=== PATIENT | male | born 1940 | race Caucasian/White ===

== ENCOUNTER → 2017-11-14 | Outpatient (CLI) | payer MEDICARE ==
[~2017-11-14] MED LIST: ASPI81CH; Omeprazole20 M1
[2017-11-14 11:57] LABS: Bacteria Rare /hpf; Red Blood Cells, Urine 25-50 /hpf (0-2); Squamous Epithelial Cells Rare /hpf (Few); White Blood Cells, Urine Not Seen /hpf (0-5)
== END | disposition home or self-care (01) ==
LOC: LAB EV 11:43
PROVIDERS: Physician Assistant Medical
DX: R31.9 Hematuria, unspecified (principal)
CPT/HCPCS: 81015; 87086

== ENCOUNTER 2018-03-07 11:03 | Day surgery (SDC) | payer MEDICARE, BC ==
[~2018-03-07] VITALS: Ht 175.3 cm; Wt 88.1 kg
== END 2018-03-07 13:25 | disposition home or self-care (01) ==
LOC: ORSCSDS 11:03
PROVIDERS: Internal Medicine Gastroenterology
PROC: 0DJD8ZZ Inspection of Lower Intestinal Tract, Via Natural or Artificial Opening Endoscopic (ICD-10-PCS; principal; 2018-03-07 13:00)
DX: Z12.11 Encounter for screening for malignant neoplasm of colon (principal); Z86.010 Personal history of colon polyps; K21.9 Gastro-esophageal reflux disease without esophagitis; E78.5 Hyperlipidemia, unspecified; Z87.891 Personal history of nicotine dependence; Z79.82 Long term (current) use of aspirin; Z79.899 Other long term (current) drug therapy
CPT/HCPCS: J7120

== ENCOUNTER 2018-03-09 08:49 | Day surgery (SDC) | payer MEDICARE, BC ==
[~2018-03-09] VITALS: Ht 175.3 cm; Wt 88.5 kg
== END 2018-03-09 12:38 | disposition home or self-care (01) ==
LOC: ORSCSDS 08:49
PROVIDERS: Internal Medicine Gastroenterology
PROC: 0DBK8ZX Excision of Ascending Colon, Via Natural or Artificial Opening Endoscopic, Diagnostic (ICD-10-PCS; principal; 2018-03-09 10:15)
PROC: 0DBL8ZX Excision of Transverse Colon, Via Natural or Artificial Opening Endoscopic, Diagnostic (ICD-10-PCS; principal; 2018-03-09 10:15)
DX: Z12.11 Encounter for screening for malignant neoplasm of colon (principal); D12.2 Benign neoplasm of ascending colon; D12.3 Benign neoplasm of transverse colon; K64.8 Other hemorrhoids; K57.30 Diverticulosis of large intestine without perforation or abscess without bleeding; Z86.010 Personal history of colon polyps; E78.2 Mixed hyperlipidemia; Z87.891 Personal history of nicotine dependence; Z79.82 Long term (current) use of aspirin; Z79.899 Other long term (current) drug therapy
CPT/HCPCS: 88305

== ENCOUNTER 2019-03-13 12:36 | Day surgery (SDC) | payer MEDICARE, BC ==
[~2019-03-13] VITALS: Ht 177.8 cm; Wt 94.1 kg
[2019-03-13] MEDS ORDERED: TAMS.4ER (13:11)
[2019-03-13] MEDS ORDERED: CHOL10002 (13:11)
[2019-03-13] MEDS ORDERED: CALCIUM GUMMIE1 EACH (13:12)
--- NOTE | 2019-03-13 15:42 | NUR ---
03/13/19 1542 Genesis Schmidt LATE ENTRY---PT C/O SCRATCHY THROAT THAT HE RATED 2/10 WHEN HE WAS FIRST WAKING UP. AFTER DRINKING JUICE AND JUST BEFORE DISCHARGE I ASKED AGAIN AND HE TOLD ME HIS THROAT WAS FINE AND FELT MUCH BETTER AND NO PAIN NOW. PATIENT WAS GIVEN PAMPHLETS ON HIGH FIBER AND DIVERTICULOSIS PER DR PETER REQUEST
== END 2019-03-13 15:10 | disposition home or self-care (01) ==
LOC: ORSCSDS 12:36
PROVIDERS: Internal Medicine Gastroenterology
PROC: 0DBP8ZX Excision of Rectum, Via Natural or Artificial Opening Endoscopic, Diagnostic (ICD-10-PCS; principal; 2019-03-13 14:15)
PROC: 0DB68ZX Excision of Stomach, Via Natural or Artificial Opening Endoscopic, Diagnostic (ICD-10-PCS; principal; 2019-03-13 14:15)
PROC: 0DBH8ZX Excision of Cecum, Via Natural or Artificial Opening Endoscopic, Diagnostic (ICD-10-PCS; principal; 2019-03-13 14:15)
PROC: 0DBM8ZX Excision of Descending Colon, Via Natural or Artificial Opening Endoscopic, Diagnostic (ICD-10-PCS; principal; 2019-03-13 14:15)
PROC: 0DBL8ZX Excision of Transverse Colon, Via Natural or Artificial Opening Endoscopic, Diagnostic (ICD-10-PCS; principal; 2019-03-13 14:15)
DX: Z86.010 Personal history of colon polyps (principal); D12.0 Benign neoplasm of cecum; D12.3 Benign neoplasm of transverse colon; D12.4 Benign neoplasm of descending colon; K62.1 Rectal polyp; K57.30 Diverticulosis of large intestine without perforation or abscess without bleeding; K64.8 Other hemorrhoids; R13.10 Dysphagia, unspecified; K21.9 Gastro-esophageal reflux disease without esophagitis; K31.7 Polyp of stomach and duodenum; K22.2 Esophageal obstruction; K31.4 Gastric diverticulum; E78.5 Hyperlipidemia, unspecified; Z79.82 Long term (current) use of aspirin; Z79.899 Other long term (current) drug therapy; Z87.891 Personal history of nicotine dependence
CPT/HCPCS: 88305; 88342; J2704; J7120

== ENCOUNTER → 2020-10-15 | Outpatient (CLI) | payer MEDICARE, BC ==
[~2020-10-15] MED LIST changes: +Aspirin EC81 MG PO; +CALCIUM CIT 311 EAC7 PO; +CALCIUM GUMMIE1 EACH; +CHOL10002; +Norco 5-325 Ta1 EACH PO; +OMEP20ER PO; +TAMS.4ER; +TAMS.4ER PO; +VITAMIN D325 MC3 PO
== END | disposition home or self-care (01) ==
LOC: LAB SHORT 10:18 → LAB EV 10:18
DX: J02.9 Acute pharyngitis, unspecified (principal)
CPT/HCPCS: 87081

== ENCOUNTER 2020-10-30 06:48 | Day surgery (SDC) | payer MEDICARE, BC ==
[~2020-10-30] VITALS: Ht 177.8 cm; Wt 91.8 kg
== END 2020-10-30 09:05 | disposition home or self-care (01) ==
LOC: ORSCSDS 06:48
PROVIDERS: Internal Medicine Gastroenterology
PROC: 0DBL8ZX Excision of Transverse Colon, Via Natural or Artificial Opening Endoscopic, Diagnostic (ICD-10-PCS; principal; 2020-10-30 08:00)
PROC: 0DBM8ZX Excision of Descending Colon, Via Natural or Artificial Opening Endoscopic, Diagnostic (ICD-10-PCS; principal; 2020-10-30 08:00)
DX: Z86.010 Personal history of colon polyps (principal); D12.3 Benign neoplasm of transverse colon; D12.4 Benign neoplasm of descending colon; K57.31 Diverticulosis of large intestine without perforation or abscess with bleeding; Z85.46 Personal history of malignant neoplasm of prostate; Z85.51 Personal history of malignant neoplasm of bladder; K21.9 Gastro-esophageal reflux disease without esophagitis; E78.5 Hyperlipidemia, unspecified; Z79.899 Other long term (current) drug therapy; Z79.82 Long term (current) use of aspirin
CPT/HCPCS: 88305; J2405; J2704; J7120

== ENCOUNTER → 2021-07-30 | Outpatient (CLI) | payer MEDICARE, BC ==
[2021-07-30 11:30] LABS: BASOPHILS ABSOLUTE AUTO 0.02 K/mm3 (0.00-0.23); BASOPHILS PERCENT AUTO 0 % (0-2); EOSINOPHILS ABSOLUTE AUTO 0.01 K/mm3 (0.00-0.68); EOSINOPHILS PERCENT AUTO 0 % (0-6); Hematocrit 36.4 % (37.0-53.0); Hemoglobin 12.4 g/dL (13.5-17.5); IMMATURE GRAN ABSOLUTE AUTO 0.01 K/mm3 (0.00-0.10); IMMATURE GRAN PERCENT AUTO 0 % (0-1); LYMPHOCYTES ABSOLUTE AUTO 0.95 K/mm3 (0.84-5.20); LYMPHOCYTES PERCENT AUTO 15 % (21-46); MONOCYTES ABSOLUTE AUTO 0.46 K/mm3 (0.16-1.47); MONOCYTES PERCENT AUTO 7 % (4-13); Mean Corpuscular HGB 31.4 pg (26.0-34.0); Mean Corpuscular HGB Conc 34.1 g/dL (31.5-36.5); Mean Corpuscular Volume 92 fL (80-100); Mean Platelet Volume 9.9 fL (9.1-12.4); NEUTROPHILS ABSOLUTE AUTO 4.84 K/mm3 (1.96-9.15); NEUTROPHILS PERCENT AUTO 77 % (41-73); Platelet Count 258 K/mm3 (150-400); RDW Coefficient Variation 12.5 % (11.7-14.2); RDW Standard Deviation 42.5 fL (35.1-46.3); Red Blood Cell Count 3.95 M/mm3 (4.30-5.90); White Blood Cell Count 6.29 K/mm3 (4.00-11.30)
[2021-07-30 11:39] LABS: Anion Gap 8 mmol/L (6-16); Blood Urea Nitrogen 28 mg/dL (8-24); Bun/Creatinine Ratio 35.4 (12.0-20.0); CO2, Blood 27 mmol/L (21-32); Calcium, Blood 9.1 mg/dL (8.5-10.1); Chloride, Blood 103 mmol/L (98-108); Creatinine, Blood 0.79 mg/dL (0.60-1.20); Glomerular Filtration Rate >60 (60-); Glucose, Blood 113 mg/dL (70-99); Potassium, Blood 4.3 mmol/L (3.5-5.5); Sodium, Blood 138 mmol/L (136-145)
== END | disposition home or self-care (01) ==
LOC: LAB 11:24 → LAB SHORT 11:24
PROVIDERS: Family Medicine
DX: R55 Syncope and collapse (principal)
CPT/HCPCS: 80048; 85025

== ENCOUNTER 2021-10-28 08:13 | Day surgery (SDC) | payer MEDICARE, BC ==
[~2021-10-28] VITALS: Ht 175.3 cm; Wt 89.9 kg
== END 2021-10-28 10:31 | disposition home or self-care (01) ==
LOC: ORSCSDS 08:13
PROVIDERS: Internal Medicine Gastroenterology
PROC: 0DJD8ZZ Inspection of Lower Intestinal Tract, Via Natural or Artificial Opening Endoscopic (ICD-10-PCS; principal; 2021-10-28 09:30)
DX: Z12.11 Encounter for screening for malignant neoplasm of colon (principal); Z86.010 Personal history of colon polyps; K57.30 Diverticulosis of large intestine without perforation or abscess without bleeding; K21.9 Gastro-esophageal reflux disease without esophagitis; Z79.899 Other long term (current) drug therapy
CPT/HCPCS: J2704; J7120

== ENCOUNTER → 2022-08-03 | Outpatient (CLI) | payer MEDICARE, BC | LOC: LAB SHORT 12:53 → LAB 12:53 | DX: J02.9 Acute pharyngitis, unspecified (principal) | CPT/HCPCS: 87081 ==

== ENCOUNTER 2022-09-22 18:25 | Inpatient (IN) | payer MEDICARE, BC ==
[~2022-09-22] VITALS: Ht 175.3 cm; Wt 88.2 kg
[2022-09-22 19:35] LABS: BASOPHILS ABSOLUTE AUTO 0.02 K/mm3 (0.00-0.23); BASOPHILS PERCENT AUTO 0 % (0-2); EOSINOPHILS PERCENT AUTO 0 % (0-6); Hematocrit 37.4 % (37.0-53.0); Hemoglobin 12.6 g/dL (13.5-17.5); IMMATURE GRAN ABSOLUTE AUTO 0.01 K/mm3 (0.00-0.10); IMMATURE GRAN PERCENT AUTO 0 % (0-1); LYMPHOCYTES ABSOLUTE AUTO 0.49 K/mm3 (0.84-5.20); LYMPHOCYTES PERCENT AUTO 11 % (21-46); MONOCYTES ABSOLUTE AUTO 0.75 K/mm3 (0.16-1.47); MONOCYTES PERCENT AUTO 16 % (4-13); Mean Corpuscular HGB 32.1 pg (26.0-34.0); Mean Corpuscular HGB Conc 33.7 g/dL (31.5-36.5); Mean Corpuscular Volume 95 fL (80-100); Mean Platelet Volume 9.4 fL (9.1-12.4); NEUTROPHILS PERCENT AUTO 73 % (41-73); Platelet Count 251 K/mm3 (150-400); RDW Coefficient Variation 12.4 % (11.7-14.2); RDW Standard Deviation 43.5 fL (35.1-46.3); Red Blood Cell Count 3.93 M/mm3 (4.30-5.90); White Blood Cell Count 4.67 K/mm3 (4.00-11.30)
[2022-09-22 19:36] LABS: Source, Urine Voided
[2022-09-22 19:40] LABS: Appearance, Urine Clear (Clear); Bilirubin, Urine Neg (Neg); Blood, Urine 2+ (Neg); Color, Urine Yellow (P-Yellow); Glucose Qualitative, Urine Neg (Neg); Ketones, Urine 1+ (Neg); Leukocyte Esterase, Urine 1+ (Neg); Nitrite, Urine Neg (Neg); Protein, Urine 2+ (Neg); Specific Gravity, Urine 1.025 (1.003-1.022); Urobilinogen, Urine 1+ (Normal)
[2022-09-22 19:45] LABS: Albumin, Blood 3.5 g/dL (3.4-5.0); Albumin/Globulin Ratio 0.9 (0.8-1.8); Bilirubin, Total 0.4 mg/dL (0.1-1.0); Bun/Creatinine Ratio 20.6 (12.0-20.0); Calcium, Blood 8.8 mg/dL (8.5-10.1); Creatinine, Blood 1.26 mg/dL (0.60-1.20); Globulin, Blood 3.8 g/dL (2.2-4.0); Total Protein, Blood 7.3 g/dL (6.4-8.2)
[2022-09-22 19:48] LABS: Mucus Mod (0-Heavy)
[2022-09-22 19:49] LABS: Bacteria Mod /hpf; Squamous Epithelial Cells Rare /hpf (Few)
[2022-09-22 20:53] LABS: Influenza A, PCR NEGATIVE (NEGATIVE); Influenza B, PCR NEGATIVE (NEGATIVE); Resp Syncytial Virus, PCR NEGATIVE (NEGATIVE)
[2022-09-22 21:47] LABS: SARS-Cov-2 (COVID-19) PCR, MMC POSITIVE (NEGATIVE)
[2022-09-22] MEDS ORDERED: RIVASTIGMINE6 MG PO (22:24)
[2022-09-22] MEDS ORDERED: CARBIDOPA-LEVO1 EA15 PO (22:24)
--- NOTE | 2022-09-23 04:18 | NUR ---
Patient resting in bed, no significant events overnight.
[2022-09-23 05:10] LABS: BASOPHILS ABSOLUTE AUTO 0.01 K/mm3 (0.00-0.23); BASOPHILS PERCENT AUTO 0 % (0-2); EOSINOPHILS PERCENT AUTO 0 % (0-6); Hematocrit 32.9 % (37.0-53.0); Hemoglobin 11.2 g/dL (13.5-17.5); IMMATURE GRAN PERCENT AUTO 0 % (0-1); LYMPHOCYTES ABSOLUTE AUTO 0.99 K/mm3 (0.84-5.20); LYMPHOCYTES PERCENT AUTO 28 % (21-46); MONOCYTES ABSOLUTE AUTO 0.85 K/mm3 (0.16-1.47); MONOCYTES PERCENT AUTO 24 % (4-13); Mean Corpuscular HGB 32.3 pg (26.0-34.0); Mean Corpuscular Volume 95 fL (80-100); Mean Platelet Volume 9.6 fL (9.1-12.4); NEUTROPHILS ABSOLUTE AUTO 1.65 K/mm3 (1.96-9.15); NEUTROPHILS PERCENT AUTO 47 % (41-73); Platelet Count 207 K/mm3 (150-400); RDW Coefficient Variation 12.3 % (11.7-14.2); RDW Standard Deviation 42.7 fL (35.1-46.3); Red Blood Cell Count 3.47 M/mm3 (4.30-5.90)
[2022-09-23 05:51] LABS: Albumin, Blood 2.9 g/dL (3.4-5.0); Albumin/Globulin Ratio 0.9 (0.8-1.8); Bilirubin, Total 0.4 mg/dL (0.1-1.0); Bun/Creatinine Ratio 21.3 (12.0-20.0); Calcium, Blood 8.3 mg/dL (8.5-10.1); Creatinine, Blood 0.94 mg/dL (0.60-1.20); Globulin, Blood 3.2 g/dL (2.2-4.0); Potassium, Blood 3.5 mmol/L (3.5-5.5); Total Protein, Blood 6.1 g/dL (6.4-8.2)
[2022-09-23] MEDS ORDERED: GABA100 PO (13:17)
--- NOTE | 2022-09-23 17:13 | NUR ---
SHIFT SUMMARY: PATIENT ALERT AND ORIENTED TO SELF, PLACE AND CURRENT SITUATIONS. PATIENT COULD NOT RECALL THE SPICIFIC DAY, DATE BUT HE HE REMEMBER THE MONTH AND YEAR. PATIENT HAS HX OF DEMENTIA. PATIENT DENIES CP/PRESSURE, ON TELE SR IN HIGH 80'S BPM, PER CERTIFIED MEDICAL TRANSCRIPTIONIST, ALFREDO RDZ. PATIENT HAS NONPRODUCTIVE COUGH. ON RA, c SPO2 OF 94% T/O SHIFT. DENIES SOB, RR UNLABORED. LUNGS CLEAR/DIM TO AUSCULTATION T/O. PATIENT CONTIN AND USED URINAL IN BED c ASSISTANCE. PATIENT REPORTS PAIN TO LOWER BACK 03/31. MEDICATED X1 c TYLENOL AND PROVIDE REPOSITIONING. PATIENT REPORTS NOT GETTING ADEQUATE RELIEF FROM TYLENOL, BUT IT HELPS c REPOSITIONING. ECHO WAS DONE THIS AM, AWAITING FOR RESULT. PATIENT WAS ABLE TO PARTICIPATE c PT MOBILITY IN BED AND ABLE TO SIT-UP ON THE EOB FOR SHORT PERIOD AND REQUESTED TO BE BACK IN BED. SPOUSE AT BEDSIDE. UPDATE GIVEN TO SPOUSE REGARDING PATIENT CONDITION. PER PATIENT DOES NOT TAKE CARVIDOPA/LAVIDOPA AND IN ADDITION, PER PATIENT TAKES EXELON [address] ANDERSON REGARDING CONCERN. RECEIVED ORDER FROM DR. ANDERSON TO D/C CARVIDOPA/LAVIDOPA AND CONTINUE EXELON 6 MG BID. IV TO L FOREARM SALINE LOCKED. VITAL SIGNS REVIEWED. BED ALARM ON FOR SAFETY. CALL LIGHT IN REACH.
--- NOTE | 2022-09-23 22:17 | NUR ---
Critical lab reported to hospitalist.
--- NOTE | 2022-09-24 03:05 | NUR ---
Patient resting in bed, no significant events overnight.
[2022-09-24 05:06] LABS: BASOPHILS ABSOLUTE AUTO 0.01 K/mm3 (0.00-0.23); BASOPHILS PERCENT AUTO 0 % (0-2); EOSINOPHILS ABSOLUTE AUTO 0.01 K/mm3 (0.00-0.68); EOSINOPHILS PERCENT AUTO 0 % (0-6); Hematocrit 35.1 % (37.0-53.0); Hemoglobin 12.2 g/dL (13.5-17.5); IMMATURE GRAN ABSOLUTE AUTO 0.01 K/mm3 (0.00-0.10); IMMATURE GRAN PERCENT AUTO 0 % (0-1); LYMPHOCYTES ABSOLUTE AUTO 1.07 K/mm3 (0.84-5.20); LYMPHOCYTES PERCENT AUTO 23 % (21-46); MONOCYTES ABSOLUTE AUTO 0.86 K/mm3 (0.16-1.47); MONOCYTES PERCENT AUTO 18 % (4-13); Mean Corpuscular HGB 32.4 pg (26.0-34.0); Mean Corpuscular HGB Conc 34.8 g/dL (31.5-36.5); Mean Corpuscular Volume 93 fL (80-100); Mean Platelet Volume 9.2 fL (9.1-12.4); NEUTROPHILS PERCENT AUTO 59 % (41-73); Platelet Count 200 K/mm3 (150-400); RDW Coefficient Variation 12.3 % (11.7-14.2); RDW Standard Deviation 42.5 fL (35.1-46.3); Red Blood Cell Count 3.76 M/mm3 (4.30-5.90); White Blood Cell Count 4.76 K/mm3 (4.00-11.30)
[2022-09-24 05:35] LABS: Bun/Creatinine Ratio 22.4 (12.0-20.0); Calcium, Blood 8.5 mg/dL (8.5-10.1); Creatinine, Blood 0.85 mg/dL (0.60-1.20); Potassium, Blood 3.6 mmol/L (3.5-5.5)
--- NOTE | 2022-09-24 09:39 | NUR ---
PATIENT ALERT AND OREINTED, CONFUSION AT TIMES, WEAKNESS, DR ADAMS ROUNDED, PATIENT TO START PT/OT TODAY, CALL LIGHT WITH IN REACH
--- NOTE | 2022-09-24 18:14 | NUR ---
ALERT AND ORIENTED, MINMAL CONFUSION, EASILY RE-EDUCATED, NO ACUTE CHANGES, WORKED WITH PT.OT TODAY TO INCREASE STRENGTH FOR POSSIBLE DISCHARGE HOME. STAND BY ASSIST FOR TRANSFER AND BRP, BED ALARM ON FOR FORGETTING TO USE CALL LIGHT, PATIENT USES CALL LIGHT APPRIOPRIATELY, CALL LIGHT WITH IN REACH, MAKES NEEDS KNOWN, WILL RELAY TO PM
[2022-09-25 05:02] LABS: BASOPHILS ABSOLUTE AUTO 0.01 K/mm3 (0.00-0.23); BASOPHILS PERCENT AUTO 0 % (0-2); EOSINOPHILS ABSOLUTE AUTO 0.02 K/mm3 (0.00-0.68); EOSINOPHILS PERCENT AUTO 1 % (0-6); Hematocrit 36.2 % (37.0-53.0); IMMATURE GRAN ABSOLUTE AUTO 0.01 K/mm3 (0.00-0.10); IMMATURE GRAN PERCENT AUTO 0 % (0-1); LYMPHOCYTES PERCENT AUTO 32 % (21-46); MONOCYTES ABSOLUTE AUTO 0.62 K/mm3 (0.16-1.47); MONOCYTES PERCENT AUTO 15 % (4-13); Mean Corpuscular HGB 31.5 pg (26.0-34.0); Mean Corpuscular HGB Conc 33.1 g/dL (31.5-36.5); Mean Corpuscular Volume 95 fL (80-100); Mean Platelet Volume 9.6 fL (9.1-12.4); NEUTROPHILS ABSOLUTE AUTO 2.16 K/mm3 (1.96-9.15); NEUTROPHILS PERCENT AUTO 53 % (41-73); Platelet Count 212 K/mm3 (150-400); RDW Coefficient Variation 12.5 % (11.7-14.2); RDW Standard Deviation 43.8 fL (35.1-46.3); Red Blood Cell Count 3.81 M/mm3 (4.30-5.90); White Blood Cell Count 4.12 K/mm3 (4.00-11.30)
[2022-09-25 05:47] LABS: Albumin/Globulin Ratio 0.9 (0.8-1.8); Bilirubin, Total 0.4 mg/dL (0.1-1.0); Bun/Creatinine Ratio 29.8 (12.0-20.0); Calcium, Blood 8.6 mg/dL (8.5-10.1); Creatinine, Blood 0.81 mg/dL (0.60-1.20); Globulin, Blood 3.5 g/dL (2.2-4.0); Potassium, Blood 3.8 mmol/L (3.5-5.5); Total Protein, Blood 6.5 g/dL (6.4-8.2)
--- NOTE | 2022-09-25 06:41 | NUR ---
VS STABLE ON RA, A&O, PLEASANT AND COOPERATIVE WITH CARES. GENERALIZED WEAKNESS, DID NOT ATTEMPT TO GET OUT OF BED LAST NIGHT. FREQUENCY WITH VOIDS BETWEEN 75-150 MLS, URINAL ASSISTANCE REQUIRED. TOLERATED IV ANTIBIOTICS, L FA IV PATENT AND SALINE LOCKED. NO EVENTS OVER NIGHT.
--- NOTE | 2022-09-25 15:30 | NUR ---
SHIFT SUMMARY PT RESTING QUIETLY AT START OF SHIFT. NO C/O. UP WITH SBA USING FWW, TO SIT IN CHAIR FOR BREAKFAST. PT CALLED FOR ASSIST TO GO BACK TO BED WHEN READY. ATTEMPTED TO OBTAIN SPUTUM CX, BUT NOT COUGHING. PT IN ISOLATION FOR COVID +, WITH AT HOME ALSO COVID +. DR ADAMS IN TO SEE PT THIS AFTERNOON. PT TO D/C TO HOME TOMORROW. SR PER TELE MX. DENIED FURTHER NEEDS AT THIS TIME. CALL LT IN REACH.
[2022-09-26 04:54] LABS: BASOPHILS ABSOLUTE AUTO 0.01 K/mm3 (0.00-0.23); BASOPHILS PERCENT AUTO 0 % (0-2); EOSINOPHILS ABSOLUTE AUTO 0.05 K/mm3 (0.00-0.68); EOSINOPHILS PERCENT AUTO 1 % (0-6); Hematocrit 37.4 % (37.0-53.0); Hemoglobin 12.6 g/dL (13.5-17.5); IMMATURE GRAN ABSOLUTE AUTO 0.01 K/mm3 (0.00-0.10); IMMATURE GRAN PERCENT AUTO 0 % (0-1); LYMPHOCYTES ABSOLUTE AUTO 1.36 K/mm3 (0.84-5.20); LYMPHOCYTES PERCENT AUTO 28 % (21-46); MONOCYTES ABSOLUTE AUTO 0.55 K/mm3 (0.16-1.47); MONOCYTES PERCENT AUTO 11 % (4-13); Mean Corpuscular HGB Conc 33.7 g/dL (31.5-36.5); Mean Corpuscular Volume 95 fL (80-100); Mean Platelet Volume 9.3 fL (9.1-12.4); NEUTROPHILS ABSOLUTE AUTO 2.83 K/mm3 (1.96-9.15); NEUTROPHILS PERCENT AUTO 59 % (41-73); Platelet Count 218 K/mm3 (150-400); RDW Coefficient Variation 12.2 % (11.7-14.2); RDW Standard Deviation 42.8 fL (35.1-46.3); Red Blood Cell Count 3.94 M/mm3 (4.30-5.90); White Blood Cell Count 4.81 K/mm3 (4.00-11.30)
[2022-09-26 05:14] LABS: Bun/Creatinine Ratio 26.5 (12.0-20.0); Creatinine, Blood 0.79 mg/dL (0.60-1.20)
--- NOTE | 2022-09-26 05:50 | NUR ---
Patient slept well overnight, no desats noted. On RA. Tolerating fluids by mouth. Voiding well, no questions or concerns at this time.
--- NOTE | 2022-09-26 15:37 | NUR ---
SHIFT SUMMARY PT AWAKE AT START OF SHIFT WATCHING TV. NO C/O. PT LATER ASSISTED UP TO CHAIR FOR BREAKFAST; 1P ASSIST. PT CALLS FOR ASSIST WITH URINAL AND OTHER NEEDS. DR ADAMS IN TO SEE PT AND DISCUSS PLAN OF CARE. PT TO D/C TO HOME. NOTIFIED AND CAME TO PICK PT UP WITH PT'S SON. D/C INSTRUCTIONS REVIEWED WITH PER PT AND REQUEST. NO NEW MEDICATIONS ORDERED. AND PT VERBALIZED UNDERSTANDING. PT ASSISTED OUT TO CAR VIA W/C WITH BELONGINGS IN HAND.
== END 2022-09-26 14:31 | disposition home or self-care (01) | DRG 871 ==
LOC: ER 18:25 → MEDS 21:53
PROVIDERS: Emergency Medicine; Family Medicine; ADMIT Internal Medicine
PROC: 8E0ZXY6 Isolation (ICD-10-PCS; principal; 2022-09-22)
PROC: XW033E5 Introduction of Remdesivir Anti-infective into Peripheral Vein, Percutaneous Approach, New Technology Group 5 (ICD-10-PCS; 2022-09-22)
PROC: 3E03329 Introduction of Other Anti-infective into Peripheral Vein, Percutaneous Approach (ICD-10-PCS; 2022-09-22)
DX: A41.9 Sepsis, unspecified organism (principal); J12.82 Pneumonia due to coronavirus disease 2019; U07.1 COVID-19; N39.0 Urinary tract infection, site not specified; E87.20 Acidosis, unspecified; G93.49 Other encephalopathy; F02.818 Dementia in other diseases classified elsewhere, unspecified severity, with other behavioral disturbance; N47.1 Phimosis; F41.9 Anxiety disorder, unspecified; G31.83 Neurocognitive disorder with Lewy bodies; D64.9 Anemia, unspecified; E86.0 Dehydration; Z85.46 Personal history of malignant neoplasm of prostate; Z85.51 Personal history of malignant neoplasm of bladder; Z90.49 Acquired absence of other specified parts of digestive tract; Z90.79 Acquired absence of other genital organ(s); Z98.890 Other specified postprocedural states; Z87.891 Personal history of nicotine dependence
CPT/HCPCS: 0241U; 36415; 70450; 71046; 80048; 80053; 81001; 83605; 83880; 84145; 85025; 87040; 87086; 93306; 93880; 96365; 96367; 97110; 97116; 97162; 97166; 97530; 97535; 99285-25; A9270; J0248; J0456; J0696; J1650; J7030; J7050

== ENCOUNTER 2024-05-08 08:07 | Day surgery (SDC) | payer MEDICARE, BC ==
[~2024-05-08] VITALS: Ht 175.3 cm; Wt 88.3 kg
[~2024-05-08 08:07] MED LIST changes: +Balanced Salt Epinephrine Irrigation Solution 500 mL IR SCH; +CARBIDOPA-LEVO1 EA15 PO; +GABA100 PO; +Lidocaine HCl/Pf 1% 5 ML VIAL XX SCH; +Moxifloxacin HCL 0.5 MG/0.1 ML 0.4MLSYR LEFTEYE SCH; +NS 500 ML IV ONE; +PHENYLEPHRINE\\TROPICAMIDE\\TETRACAINE OPHTHALMIC DILATING SOLN LEFTEYE PRN; +Povidone-Iodine 450 DROP/30 ML Solution LEFTEYE SCH; +Povidone-Iodine 450 DROP/30 ML Solution ONE; +RIVASTIGMINE6 MG PO; +Tetracaine HCl/Pf 0.5% Opth Soln 4 ml ONE
[2024-05-08] MEDS ORDERED: CARBIDOPA-LEVO1 EA15 (08:49)
[2024-05-08] MEDS ORDERED: NS 500 ML IV ONE (08:56)
--- NOTE | 2024-05-08 08:57 | NUR ---
05/08/24 0857 Kiko España CALL LIGHT WITHIN REACH. TETRACAINE IN LEFT EYE 0850 AND PLEDGETT IN AT 0851
[2024-05-08] MEDS ORDERED: Midazolam HCl 1MG / ML 2ML Vial ONE (09:40)
[2024-05-08 10:18] VITALS: BP 139/69
== END 2024-05-08 10:26 | disposition home or self-care (01) ==
LOC: ORSCSDS 08:07
PROVIDERS: Student in an Organized Health Care Education/Training Program
PROC: 08RK3JZ Replacement of Left Lens with Synthetic Substitute, Percutaneous Approach (ICD-10-PCS; principal; 2024-05-08 09:30)
DX: H25.813 Combined forms of age-related cataract, bilateral (principal); H21.81 Floppy iris syndrome; I25.10 Atherosclerotic heart disease of native coronary artery without angina pectoris; K21.9 Gastro-esophageal reflux disease without esophagitis; G20.A1 Parkinson's disease without dyskinesia, without mention of fluctuations; G30.9 Alzheimer's disease, unspecified; F02.80 Dementia in other diseases classified elsewhere, unspecified severity, without behavioral disturbance, psychotic disturbance, mood disturbance, and anxiety; Z79.82 Long term (current) use of aspirin; Z79.899 Other long term (current) drug therapy
CPT/HCPCS: J2250; J7040; V2632

== ENCOUNTER 2024-05-16 09:43 | Day surgery (SDC) | payer MEDICARE, BC ==
[~2024-05-16] VITALS: Ht 175.3 cm; Wt 88.3 kg
[~2024-05-16 09:43] MED LIST changes: +CARBIDOPA-LEVO1 EA15; +FentaNYL Citrate 50 MCG/ML 2 ML Injection ONE; +Midazolam HCl 1MG / ML 2ML Vial ONE; -Moxifloxacin HCL 0.5 MG/0.1 ML 0.4MLSYR LEFTEYE SCH; +Moxifloxacin HCL 0.5 MG/0.1 ML 0.4MLSYR RIGHTEYE SCH; -PHENYLEPHRINE\\TROPICAMIDE\\TETRACAINE OPHTHALMIC DILATING SOLN LEFTEYE PRN; +PHENYLEPHRINE\\TROPICAMIDE\\TETRACAINE OPHTHALMIC DILATING SOLN RIGHTEYE PRN; -Povidone-Iodine 450 DROP/30 ML Solution LEFTEYE SCH; +Povidone-Iodine 450 DROP/30 ML Solution RIGHTEYE SCH
[2024-05-16] MEDS ORDERED: NS 1,000 ML IV ONE (10:22)
[2024-05-16 11:33] VITALS: BP 128/79
== END 2024-05-16 11:46 | disposition home or self-care (01) ==
LOC: ORSCSDS 09:43
PROVIDERS: Student in an Organized Health Care Education/Training Program
PROC: 08RJ3JZ Replacement of Right Lens with Synthetic Substitute, Percutaneous Approach (ICD-10-PCS; principal; 2024-05-16 11:00)
DX: H25.811 Combined forms of age-related cataract, right eye (principal); Z96.1 Presence of intraocular lens; G30.9 Alzheimer's disease, unspecified; I25.10 Atherosclerotic heart disease of native coronary artery without angina pectoris; Z79.899 Other long term (current) drug therapy
CPT/HCPCS: J2250; J3010; J7040; V2632

== ENCOUNTER 2024-06-04 18:10 | Inpatient (IN) | payer MEDICARE, BC ==
[~2024-06-04] VITALS: Ht 177.8 cm; Wt 79.4 kg
[~2024-06-04 18:10] MED LIST changes: -Balanced Salt Epinephrine Irrigation Solution 500 mL IR SCH; -FentaNYL Citrate 50 MCG/ML 2 ML Injection ONE; -Lidocaine HCl/Pf 1% 5 ML VIAL XX SCH; -Midazolam HCl 1MG / ML 2ML Vial ONE; -Moxifloxacin HCL 0.5 MG/0.1 ML 0.4MLSYR RIGHTEYE SCH; -NS 500 ML IV ONE; -PHENYLEPHRINE\\TROPICAMIDE\\TETRACAINE OPHTHALMIC DILATING SOLN RIGHTEYE PRN; -Povidone-Iodine 450 DROP/30 ML Solution ONE; -Povidone-Iodine 450 DROP/30 ML Solution RIGHTEYE SCH; -Tetracaine HCl/Pf 0.5% Opth Soln 4 ml ONE
[2024-06-04 18:39] LABS: BASOPHILS ABSOLUTE AUTO 0.01 K/mm3 (0.00-0.23); BASOPHILS PERCENT AUTO 0 % (0-2); EOSINOPHILS PERCENT AUTO 0 % (0-6); Hemoglobin 11.1 g/dL (13.5-17.5); IMMATURE GRAN ABSOLUTE AUTO 0.03 K/mm3 (0.00-0.10); IMMATURE GRAN PERCENT AUTO 0 % (0-1); LYMPHOCYTES ABSOLUTE AUTO 0.51 K/mm3 (0.84-5.20); LYMPHOCYTES PERCENT AUTO 5 % (21-46); MONOCYTES ABSOLUTE AUTO 0.62 K/mm3 (0.16-1.47); MONOCYTES PERCENT AUTO 7 % (4-13); Mean Corpuscular HGB Conc 32.6 g/dL (31.5-36.5); Mean Corpuscular Volume 98 fL (80-100); Mean Platelet Volume 10.2 fL (9.1-12.4); NEUTROPHILS ABSOLUTE AUTO 8.26 K/mm3 (1.96-9.15); NEUTROPHILS PERCENT AUTO 88 % (41-73); Platelet Count 260 K/mm3 (150-400); RDW Coefficient Variation 13.1 % (11.7-14.2); RDW Standard Deviation 46.1 fL (35.1-46.3); Red Blood Cell Count 3.47 M/mm3 (4.30-5.90); White Blood Cell Count 9.43 K/mm3 (4.00-11.30)
[2024-06-04] MEDS ORDERED: Heparin Sodium 5000 Units/ML 1ML MDV IV ONE (18:40)
[2024-06-04 18:58] LABS: Alanine Aminotransfer (ALT/SGP 74 U/L (12-78); Albumin, Blood 3.3 g/dL (3.4-5.0); Albumin/Globulin Ratio 0.9 (0.8-1.8); Alk Phos 138 U/L (50-136); Anion Gap 14 mmol/L (3-11); Aspartate Aminotrans (AST/SGOT 606 U/L (12-37); Bilirubin, Total 1.2 mg/dL (0.1-1.0); Blood Urea Nitrogen 27 mg/dL (8-24); Bun/Creatinine Ratio 18.4 (12.0-20.0); CHOL/HDL RATIO 4.7; CO2, Blood 22 mmol/L (21-32); Calcium, Blood 8.5 mg/dL (8.5-10.1); Chloride, Blood 103 mmol/L (98-108); Cholesterol 208 mg/dL (50-200); Creatinine, Blood 1.47 mg/dL (0.60-1.20); Globulin, Blood 3.8 g/dL (2.2-4.0); Glomerular Filtration Rate 47 (60-); Glucose, Blood 210 mg/dL (70-99); HDL Cholesterol 44 mg/dL (>39); LDL/HDL RATIO 3.2; Low Density Lipoprotein Chol 143 mg/dL (0-110); Magnesium, Blood 2.3 mg/dL (1.6-2.4); Potassium, Blood 4.3 mmol/L (3.5-5.5); Sodium, Blood 135 mmol/L (136-145); Total Protein, Blood 7.1 g/dL (6.4-8.2); Triglycerides 106 mg/dL (30-160); Very Low Density Lipoprot Chol 21 mg/dL (6-32)
[2024-06-04] MEDS ORDERED: FentaNYL Citrate 50 MCG/ML 2 ML Injection ONE (19:02)
[2024-06-04] MEDS ORDERED: Midazolam HCl 1MG / ML 2ML Vial ONE (19:02)
[2024-06-04] MEDS ORDERED: NS 2,000 ML IV ONE (19:03)
[2024-06-04] MEDS ORDERED: Heparin Sodium 1000 Units/ML 10ML MDV ONE (19:03)
[2024-06-04] MEDS ORDERED: NS 500 ML IV ONE (19:03)
[2024-06-04] MEDS ORDERED: NS 250 ML IV ONE (19:03)
[2024-06-04] MEDS ORDERED: NS 1,000 ML IV ONE (19:05)
[2024-06-04] MEDS ORDERED: Atropine Sulfate 0.1 MG/ML 10ML SYR ONE (19:08)
[2024-06-04] MEDS ORDERED: Phenylephrine HCl 100 MCG/ML-NS 10MLSYR (1MG/10ML) ONE (19:08)
[2024-06-04 19:15] VITALS: BP 87/58
[2024-06-04] MEDS ORDERED: Norepinephrine Bitartrate 250 ML IV ONE (19:21)
[2024-06-04] MEDS ORDERED: Vasopressin 20 UNITS in NS 100 ML IV SCH (19:40)
[2024-06-04] MEDS ORDERED: propofoL 50 ML IV ONE (19:48)
[2024-06-04] MEDS ORDERED: Dopamine/Dextrose 250 ML IV ONE (19:54)
[2024-06-04 20:16] LABS: PCO2 Arterial 41 mmHg (35-45); PO2 Arterial 187 mmHg (80-100); pH Blood Arterial 7.05 (7.35-7.45)
[2024-06-04] MEDS ORDERED: Heparin Sodium,Porcine 5,000 UNIT/0.5 ML SDV SC ONE (20:56)
[2024-06-04] MEDS ORDERED: Ticagrelor 90 MG TABLET PO ONE (20:56)
[2024-06-04] MEDS ORDERED: EPINEPhrine HCl 0.1 MG/ML 10ML SYR IV ONE (21:14)
--- NOTE | 2024-06-04 21:21 | NUR ---
Call back TOD Decendents family at bedside. Spoke mainly with pt's spouse who was provided space to reflect on the pt's life. She was able to verbalize her feelings of shock and disbelief. She takes solace in beliefs of the afterlife. Spouse has family that live in home with her. Verbal prayer extended to those present in honor of patient. They verbalized gratitude for the interventions.
--- NOTE | 2024-06-04 21:25 | NUR ---
REMOVAL OF PERSONAL ITEM PT ASKED FOR HELP REMOVING WEDDING RING. GARLAND RIOJAS USED LUBRICATING GEL TO REMOVE RING AND IT WAS WASHED OFF AND THEN HANDED TO WHO PROMPTLY PLACED IT IN HER WALLET. GARLAND RIOJAS AND GORDON RIOJAS PRESENT
--- NOTE | 2024-06-04 22:20 | NUR ---
ARRIVAL TO ICU/TOD PT ARRIVED TO ICU 13 AT 2025 FROM [facility] SCREEN PRINTING WITH DR DOSS AT BEDSIDE. DR DOSS STATED THAT WE WOULD NOT BE ESCULATING CARE. THE PT WAS BEING BAGGED BY RT AND HAD LEVO, VASO, AND DOPAMINE INFUSING AND MAXED OUT. ZOLL SHOWED ASYSTOLE. PT FAMILY CAME TO BEDSIDE. STAFF IN ROOM THEN INSTRUCTED BY DR DOSS TO STOP BAGGING PT AND TO TURN OFF PRESSORS. TOD CALLED BY DR DOSS AT 2028. MARY CAME TO BEDSIDE TO SUPPORT THE LARGE AMOUNT OF FAMILY IN ROOM INCLUDING PT , CHILDREN, AND THEIR PARTNERS. [facility] SELECTED FOR HOME. PERSONAL BELONGINGS INCLUDING WEDDING RING SENT HOME WITH FAMILY.
[2024-06-05] MEDS ORDERED: Ticagrelor 90 MG TABLET PO SCH (09:00)
== END 2024-06-04 20:29 ==
LOC: ER 18:10 → ICUE 18:42
PROVIDERS: Emergency Medicine; ADMIT Internal Medicine Cardiovascular Disease
PROC: 02JA3ZZ Inspection of Heart, Percutaneous Approach (ICD-10-PCS; principal; 2024-06-04)
PROC: B2111ZZ Fluoroscopy of Multiple Coronary Arteries using Low Osmolar Contrast (ICD-10-PCS; principal; 2024-06-04)
PROC: 5A12012 Performance of Cardiac Output, Single, Manual (ICD-10-PCS; 2024-06-04)
PROC: 3E033XZ Introduction of Vasopressor into Peripheral Vein, Percutaneous Approach (ICD-10-PCS; 2024-06-04)
PROC: 06HY33Z Insertion of Infusion Device into Lower Vein, Percutaneous Approach (ICD-10-PCS; 2024-06-04)
PROC: 0BH17EZ Insertion of Endotracheal Airway into Trachea, Via Natural or Artificial Opening (ICD-10-PCS; 2024-06-04)
PROC: 5A1935Z Respiratory Ventilation, Less than 24 Consecutive Hours (ICD-10-PCS; 2024-06-04)
PROC: 4A033R1 Measurement of Arterial Saturation, Peripheral, Percutaneous Approach (ICD-10-PCS; 2024-06-04)
DX: I21.02 ST elevation (STEMI) myocardial infarction involving left anterior descending coronary artery (principal); I45.2 Bifascicular block; R57.0 Cardiogenic shock; I49.01 Ventricular fibrillation; G31.83 Neurocognitive disorder with Lewy bodies; F02.80 Dementia in other diseases classified elsewhere, unspecified severity, without behavioral disturbance, psychotic disturbance, mood disturbance, and anxiety; E78.5 Hyperlipidemia, unspecified; R54 Age-related physical debility; I46.2 Cardiac arrest due to underlying cardiac condition; R29.6 Repeated falls; I25.10 Atherosclerotic heart disease of native coronary artery without angina pectoris; Z85.46 Personal history of malignant neoplasm of prostate; Z85.51 Personal history of malignant neoplasm of bladder; Z88.8 Allergy status to other drugs, medicaments and biological substances; Z79.82 Long term (current) use of aspirin; Z79.899 Other long term (current) drug therapy; Z92.21 Personal history of antineoplastic chemotherapy; Z90.49 Acquired absence of other specified parts of digestive tract; Z90.79 Acquired absence of other genital organ(s); Z98.49 Cataract extraction status, unspecified eye; Z87.891 Personal history of nicotine dependence; Z98.61 Coronary angioplasty status; Z98.890 Other specified postprocedural states; W19.XXXA Unspecified fall, initial encounter
CPT/HCPCS: 36600; 71045; 80053; 80061; 82803; 83735; 84484; 85025; 85347; 86850; 86900; 86901; 92950; 93005; 93010; 93454; 99285-25; A9270; C1769; C1887; C1894; J0461; J1265; J1644; J2250; J2371; J2704; J3010; J7030; J7040; J7050; J7060; Q9967